=== PATIENT | female | born 1975 | race Caucasian/White ===

== ENCOUNTER → 2024-05-15 09:11 | Outpatient (CLI) | payer BC, SELFPAY ==
[2024-05-15 19:44] LABS: Add Manual Diff / Slide Review NO; Basophils Absolute Auto 0 /uL (0-100); Basophils Percent Auto 0.6 % (0-2); Eosinophils Absolute Auto 0 /uL (0-450); Eosinophils Percent Auto 0.3 % (2-4); Hematocrit 27.4 % (36-46); Hemoglobin 7.9 g/dL (12.0-16.0); Lymphocytes Absolute Auto 1000 /uL (1100-4500); Lymphocytes Percent Auto 24.1 % (25-40); Mean Corpuscular HGB Conc 28.8 % (30-36); Mean Corpuscular Hemoglobin 18.1 PG (26-34); Mean Corpuscular Volume 62.9 fL (80-100); Monocytes Absolute Auto 400 /uL (0-900); Monocytes Percent Auto 8.3 % (3-14); Neutrophils Absolute Auto 2800 /uL (1500-7000); Neutrophils Percent Auto 66.7 % (50-75); Platelet Count 197 X10^3/uL (150-400); Red Blood Cell Count 4.36 X10^6/uL (4.0-5.2); Red Cell Distribution Width 18.6 % (11.6-14.8); White Blood Cell Count 4.2 X10^3/uL (4.5-11.0)
[2024-05-15 19:57] LABS: Alanine Aminotransferase 15 IU/L (<35); Albumin 4.3 g/dL (3.5-5.0); Albumin Globulin Ratio 1.6 (1.0-2.8); Alkaline Phosphatase 62 U/L (38-126); Aspartate Aminotransferase 27 IU/L (14-36); BUN Creatinine Ratio 14.7 (6-22); Bilirubin Total 0.8 mg/dL (0.2-1.3); Blood Urea Nitrogen 10 mg/dL (7-17); Calcium 9.1 mg/dL (8.4-10.2); Carbon Dioxide 24 mmol/L (22-32); Chloride 111 mmol/L (98-107); Cholesterol 190 mg/dL (140-199); Estimated Glomerular Filt Rate > 60 mL/min (>60); Globulin 2.7 g/dL (1.7-4.1); Glucose 91 mg/dL (70-100); HDL Cholesterol 76 mg/dL (40-60); HEMOLYSIS 17 (0-50); LDL Cholesterol Calculated 93 mg/dL (<100); Potassium 4.1 mmol/L (3.4-5.1); Sodium 138 mmol/L (137-145); Triglycerides 104 mg/dL (35-150)
[2024-05-15 20:20] LABS: Hypochromasia 2+; Microcytosis 2+; Ovalocytes 2+; Platelet Estimate Adequate on smear
[2024-05-15 20:28] LABS: TSH w/ Reflex to FT4 1.21 uIU/mL (0.47-4.68)
[2024-05-15 20:32] LABS: Ferritin 3 ng/mL (6-137)
== END ==
PROVIDERS: PCP Family Medicine; Visit Provider Family Medicine
DX: R06.00 Dyspnea, unspecified (principal); R00.2 Palpitations; Z13.1 Encounter for screening for diabetes mellitus; Z13.29 Encounter for screening for other suspected endocrine disorder; Z13.0 Encounter for screening for diseases of the blood and blood-forming organs and certain disorders involving the immune mechanism; Z13.6 Encounter for screening for cardiovascular disorders; Z86.16 Personal history of COVID-19
CPT/HCPCS: 80053; 80061; 82728; 84443; 85025

== ENCOUNTER → 2024-08-15 13:06 | Outpatient (CLI) | payer BC, SELFPAY ==
[2024-08-15 20:38] LABS: Add Manual Diff / Slide Review NO; Basophils Absolute Auto 0 /uL (0-100); Basophils Percent Auto 0.7 % (0-2); Eosinophils Absolute Auto 0 /uL (0-450); Eosinophils Percent Auto 0.7 % (2-4); Hematocrit 40.8 % (36-46); Hemoglobin 13.1 g/dL (12.0-16.0); Lymphocytes Absolute Auto 1400 /uL (1100-4500); Lymphocytes Percent Auto 25.5 % (25-40); Mean Corpuscular Volume 81.2 fL (80-100); Monocytes Absolute Auto 400 /uL (0-900); Neutrophils Absolute Auto 3500 /uL (1500-7000); Neutrophils Percent Auto 65.1 % (50-75); Platelet Count 171 X10^3/uL (150-400); Red Blood Cell Count 5.02 X10^6/uL (4.0-5.2); Red Cell Distribution Width 18.7 % (11.6-14.8); White Blood Cell Count 5.4 X10^3/uL (4.5-11.0)
[2024-08-15 20:39] LABS: HEMOLYSIS < 15 (0-50); Iron 102 ug/dL (37-170)
[2024-08-15 20:57] LABS: Percent Iron Saturation 28 % (15-50); Total Iron Binding Capacity 362 ug/dL (265-497); Transferrin 277 mg/dL (206-381)
[2024-08-15 21:19] LABS: Ferritin 8 ng/mL (6-137)
== END ==
PROVIDERS: PCP Family Medicine; Visit Provider Family Medicine
DX: Z13.1 Encounter for screening for diabetes mellitus (principal); D50.9 Iron deficiency anemia, unspecified
CPT/HCPCS: 82728; 83540; 83550; 85025

== ENCOUNTER → 2025-05-08 11:38 | Outpatient (CLI) | payer BC, SELFPAY ==
[2025-05-08 19:24] LABS: Add Manual Diff / Slide Review NO; Hematocrit 38.2 % (36-46); Hemoglobin 12.3 g/dL (12.0-16.0); Lymphocytes Absolute Auto 1300 /uL (1100-4500); Mean Corpuscular HGB Conc 32.3 % (30-36); Mean Corpuscular Hemoglobin 25.4 PG (26-34); Mean Corpuscular Volume 78.6 fL (80-100); Platelet Count 178 X10^3/uL (150-400)
[2025-05-08 20:05] LABS: Ferritin 5 ng/mL (6-137)
== END ==
PROVIDERS: PCP Family Medicine; Visit Provider Family Medicine
DX: D50.8 Other iron deficiency anemias (principal)
CPT/HCPCS: 82728; 85025

== ENCOUNTER → 2025-08-15 14:01 | Outpatient (CLI) | payer BC, SELFPAY ==
[2025-08-15 19:12] LABS: Blood Urea Nitrogen 16 mg/dL (7-17); Calcium 9.2 mg/dL (8.4-10.2); Carbon Dioxide 25 mmol/L (22-32); Chloride 104 mmol/L (98-107); Estimated Glomerular Filt Rate > 60 mL/min (>60); Glucose 81 mg/dL (70-99); HEMOLYSIS 20 (0-50); Potassium 4.5 mmol/L (3.4-5.1); Sodium 137 mmol/L (137-145)
[2025-08-15 19:13] LABS: Hematocrit 43.2 % (36-46); Hemoglobin 14.7 g/dL (12.0-16.0); Mean Corpuscular HGB Conc 34.0 % (30-36); Mean Corpuscular Hemoglobin 29.3 PG (26-34); Mean Corpuscular Volume 86.3 fL (80-100); Platelet Count 183 X10^3/uL (150-400)
[2025-08-15 19:33] LABS: Vitamin D 25 Hydroxy (D3) 31.5 ng/mL (30.0-100.0)
[2025-08-15 20:39] LABS: Vitamin B12 482 pg/mL (239-931)
== END ==
PROVIDERS: PCP Family Medicine; Visit Provider Family Medicine
DX: R00.2 Palpitations (principal); D50.8 Other iron deficiency anemias; R53.83 Other fatigue; Z71.3 Dietary counseling and surveillance
CPT/HCPCS: 80048; 82306; 82607; 85027

== ENCOUNTER → 2025-09-03 13:14 | Outpatient (CLI) | payer BC, SELFPAY ==
[2025-09-03 20:39] LABS: Ferritin 23 ng/mL (6-137)
== END ==
PROVIDERS: PCP Family Medicine; Visit Provider Family Medicine
DX: D50.8 Other iron deficiency anemias (principal)
CPT/HCPCS: 82728